=== PATIENT | male | born 1935 | race Caucasian/White ===

== ENCOUNTER → 2018-09-20 | Day surgery (SDC) | payer MEDICARE ==
[~2018-09-20] VITALS: Ht 203.2 cm; Wt 61.2 kg
[~2018-09-20] MED LIST: ALEVE; ARICEPT5 MG PO; ASPIRIN EC81 MG PO; AUGMENTIN 500-1 EACH PO; CEFAZOLIN SOD 1 GM VIAL ONE; CEFUROXIME250 MG PO; CENTRUM SILVER1 EAC3 PO; CIPRO500 MG PO; DONEPEZIL; DOXAZOSIN; FENTANYL CITRATE/PF 100MCG/2 ML INJ ONE; FLOMAX0.4 MG PO; IOPAMIDOL 300MG/ML 100 ML INFUS..BTL IV ONE; LIDOCAINE HCL 2% LOCAL 20 ML VIAL ONE; MIDAZOLAM HCL 2 MG/2 ML VIAL ONE; NAMENDA10 MG PO; PEPCID20 MG PO; SODIUM CHLORIDE 0.9% 1000ML 1,000 ML ONE; SODIUM CHLORIDE 0.9% 1000ML 2,000 ML ONE; VITAMIN C1000 MG PO; [UNRECOGNIZED DRUG - OTHER]
--- OUTSIDE RECORDS SUMMARY | 2018-09-20 12:51 | XMS REPORT ---
[facility] Address Unknown Phone Unavailable Care Team Providers Care Silk Screen Repairer Name Role Phone NATANAEL MORRIS Unavailable Unavailable Alexandria LAGUNA Unavailable Unavailable Payers Payer Name Policy Type Policy Number Effective Date Expiration Date Problems This patient has no known problems. Allergies, Adverse Reactions, Alerts Allergy Name Allergy Type Status Severity Reaction(s) Onset Date Inactive Date Treating Clinician Comments No Known Allergies DA Active U 2016-06-12 00:00:00 Medications This patient has no known medications. Results Test Description Test Time Test Comments Text Results Atomic Results Result Comments CBC W/MANUAL DIFF 2018-07-05 16:53:00 WHITE BLOOD CELL (test code=WBC) 4.1 K/mm3 4.5-12.5 RED BLOOD CELL (test code=RBC) 4.11 mill/mm3 4.0-5.8 HEMOGLOBIN (test code=HGB) 11.5 gram/dL 13.0-17.5 HEMATOCRIT (test code=HCT) 37.4 % 42.0-52.0 MEAN CELL VOLUME (test code=MCV) 91.0 fL 80-98 MEAN CELL HGB (test code=MCH) 28.0 picogram 27.0-33.0 MEAN CELL HGB CONCETRATION (test code=MCHC) 30.7 gram/dL 33.0-36.0 RED CELL DISTRIBUTION WIDTH (test code=RDW) 13.8 % 11.6-16.2 RED CELL DISTRIBUTION WIDTH SD (test code=RDW-SD) 46.5 fL 37.0-51.0 PLATELET COUNT (test code=PLT) 110 K/mm3 150-450 MEAN PLATELET VOLUME (test code=MPV) 9.4 fL 6.7-11.0 IMMATURE GRANULOCYTE % (test code=IG%) 0.7 % 0.0-5.0 NUCLEATED RBC % (test code=NRBC%) 0.0 % 0-0 NEUTROPHIL # (test code=NT#) 2.68 K/mm3 1.8-7.7 IMMATURE GRANULOCYTE # (test code=IG#) 0.03 x10 3/uL 0-0.03 LYMPHOCYTE # (test code=LY#) 1.01 K/mm3 1.0-5.0 MONOCYTE # (test code=MO#) 0.29 K/mm3 0-0.8 EOSINOPHIL # (test code=EO#) 0.04 K/mm3 0.0-0.5 BASOPHIL # (test code=BA#) 0.00 K/mm3 0.0-0.2 NUCLEATED RBC # (test code=NRBC#) 0.00 K/mm3 0.0-0.1 MANUAL DIFF REQUIRED (test code=MDIFF) YES STAIN ACCEPTABILITY (test code=STN ACCEPTABLE) STAIN ACCEPTABLE TOTAL CELLS COUNTED (test code=TCC) 100 #CELLS SEGMENTED NEUTROPHILS (test code=SEG) 68 % 39-69 BAND NEUTROPHIL (test code=BAND) 1 % 0-10 LYMPHOCYTE (test code=LYMPH) 23 % 25-55 MONOCYTE (test code=MON) 8 % 0-10 MORPHOLOGY COMMENT (test code=MOC) NORMAL PLATELET ESTIMATE (test code=PLTEST) DECREASED PLATELET MORPHOLOGY (test code=PLTMORPH) NORMAL BASIC METABOLIC [id number] 13:02:00* Test Item Value Reference Range Comments SODIUM (test code=NA) 140 mmol/L 136-145 POTASSIUM (test code=K) 4.2 mmol/L 3.5-5.1 CHLORIDE (test code=CL) 106.0 mmol/L 98-107 CARBON DIOXIDE (test code=CO2) 32.0 mmol/L 21-32 ANION GAP (test code=GAP) 6.2 10-20 GLUCOSE (test code=GLU) 93 mg/dL 74-106 BLOOD UREA NITROGEN (test code=BUN) 37 mg/dL 7-18 GLOMERULAR FILTRATION RATE (test code=GFR) > 60 mL/min >=60 Estimated GFR by using Modified MDRD formula.Chronic kidney disease is defined as either kidney damageor GFR <60 mL/min/1.73 m2 for >3 months. CREATININE (test code=CREAT) 0.80 mg/dL 0.7-1.3 BUN/CREATININE RATIO (test code=BUN/CREA) 46.3 10-20 CALCIUM (test code=CA) 8.5 mg/dL 8.5-10.1 [id number] 13:02:00* Test Item Value Reference Range Comments MAGNESIUM (test code=MAG) 2.3 mg/dL 1.8-2.4 BASIC METABOLIC [id number] 12:47:00* Test Item Value Reference Range Comments SODIUM (test code=NA) 140 mmol/L 136-145 POTASSIUM (test code=K) 4.2 mmol/L 3.5-5.1 CHLORIDE (test code=CL) 106.0 mmol/L 98-107 CARBON DIOXIDE (test code=CO2) mmol/L 21-32 ANION GAP (test code=GAP) 10-20 GLUCOSE (test code=GLU) mg/dL 74-106 BLOOD UREA NITROGEN (test code=BUN) mg/dL 7-18 GLOMERULAR FILTRATION RATE (test code=GFR) mL/min >=60 CREATININE (test code=CREAT) mg/dL 0.7-1.3 BUN/CREATININE RATIO (test code=BUN/CREA) 10-20 CALCIUM (test code=CA) mg/dL 8.5-10.1 [id number] 12:47:00* Test Item Value Reference Range Comments MAGNESIUM (test code=MAG) mg/dL 1.8-2.4 CBC W/MANUAL [id number] 12:07:00* Test Item Value Reference Range Comments WHITE BLOOD CELL (test code=WBC) 4.1 K/mm3 4.5-12.5 RED BLOOD CELL (test code=RBC) 4.11 mill/mm3 4.0-5.8 HEMOGLOBIN (test code=HGB) 11.5 gram/dL 13.0-17.5 HEMATOCRIT (test code=HCT) 37.4 % 42.0-52.0 MEAN CELL VOLUME (test code=MCV) 91.0 fL 80-98 MEAN CELL HGB (test code=MCH) 28.0 picogram 27.0-33.0 MEAN CELL HGB CONCETRATION (test code=MCHC) 30.7 gram/dL 33.0-36.0 RED CELL DISTRIBUTION WIDTH (test code=RDW) 13.8 % 11.6-16.2 RED CELL DISTRIBUTION WIDTH SD (test code=RDW-SD) 46.5 fL 37.0-51.0 PLATELET COUNT (test code=PLT) 110 K/mm3 150-450 MEAN PLATELET VOLUME (test code=MPV) 9.4 fL 6.7-11.0 IMMATURE GRANULOCYTE % (test code=IG%) 0.7 % 0.0-5.0 NUCLEATED RBC % (test code=NRBC%) 0.0 % 0-0 NEUTROPHIL # (test code=NT#) 2.68 K/mm3 1.8-7.7 IMMATURE GRANULOCYTE # (test code=IG#) 0.03 x10 3/uL 0-0.03 LYMPHOCYTE # (test code=LY#) 1.01 K/mm3 1.0-5.0 MONOCYTE # (test code=MO#) 0.29 K/mm3 0-0.8 EOSINOPHIL # (test code=EO#) 0.04 K/mm3 0.0-0.5 BASOPHIL # (test code=BA#) 0.00 K/mm3 0.0-0.2 NUCLEATED RBC # (test code=NRBC#) 0.00 K/mm3 0.0-0.1 MANUAL DIFF REQUIRED (test code=MDIFF) YES STAIN ACCEPTABILITY (test code=STN ACCEPTABLE) TOTAL CELLS COUNTED (test code=TCC) #CELLS SEGMENTED NEUTROPHILS (test code=SEG) % 39-69 LYMPHOCYTE (test code=LYMPH) % 25-55 MONOCYTE (test code=MON) % 0-10 EOSINOPHIL (test code=EOS) % 0.0-5.0 CABOT RINGS (test code=CAB) MORPHOLOGY COMMENT (test code=MOC) PLATELET ESTIMATE (test code=PLTEST) PLATELET MORPHOLOGY (test code=PLTMORPH) CBC W/MANUAL [id number] 12:07:00* Test Item Value Reference Range Comments WHITE BLOOD CELL (test code=WBC) 4.1 K/mm3 4.5-12.5 RED BLOOD CELL (test code=RBC) 4.11 mill/mm3 4.0-5.8 HEMOGLOBIN (test code=HGB) 11.5 gram/dL 13.0-17.5 HEMATOCRIT (test code=HCT) 37.4 % 42.0-52.0 MEAN CELL VOLUME (test code=MCV) 91.0 fL 80-98 MEAN CELL HGB (test code=MCH) 28.0 picogram 27.0-33.0 MEAN CELL HGB CONCETRATION (test code=MCHC) 30.7 gram/dL 33.0-36.0 RED CELL DISTRIBUTION WIDTH (test code=RDW) 13.8 % 11.6-16.2 RED CELL DISTRIBUTION WIDTH SD (test code=RDW-SD) 46.5 fL 37.0-51.0 PLATELET COUNT (test code=PLT) 110 K/mm3 150-450 MEAN PLATELET VOLUME (test code=MPV) 9.4 fL 6.7-11.0 IMMATURE GRANULOCYTE % (test code=IG%) 0.7 % 0.0-5.0 NUCLEATED RBC % (test code=NRBC%) 0.0 % 0-0 NEUTROPHIL # (test code=NT#) 2.68 K/mm3 1.8-7.7 IMMATURE GRANULOCYTE # (test code=IG#) 0.03 x10 3/uL 0-0.03 LYMPHOCYTE # (test code=LY#) 1.01 K/mm3 1.0-5.0 MONOCYTE # (test code=MO#) 0.29 K/mm3 0-0.8 EOSINOPHIL # (test code=EO#) 0.04 K/mm3 0.0-0.5 BASOPHIL # (test code=BA#) 0.00 K/mm3 0.0-0.2 NUCLEATED RBC # (test code=NRBC#) 0.00 K/mm3 0.0-0.1 MANUAL DIFF REQUIRED (test code=MDIFF) YES STAIN ACCEPTABILITY (test code=STN ACCEPTABLE) TOTAL CELLS COUNTED (test code=TCC) #CELLS SEGMENTED NEUTROPHILS (test code=SEG) % 39-69 LYMPHOCYTE (test code=LYMPH) % 25-55 MONOCYTE (test code=MON) % 0-10 EOSINOPHIL (test code=EOS) % 0.0-5.0 CABOT RINGS (test code=CAB) MORPHOLOGY COMMENT (test code=MOC) PLATELET ESTIMATE (test code=PLTEST) PLATELET MORPHOLOGY (test code=PLTMORPH) CBC W/MANUAL [id number] 12:07:00* Test Item Value Reference Range Comments WHITE BLOOD CELL (test code=WBC) 4.1 K/mm3 4.5-12.5 RED BLOOD CELL (test code=RBC) 4.11 mill/mm3 4.0-5.8 HEMOGLOBIN (test code=HGB) 11.5 gram/dL 13.0-17.5 HEMATOCRIT (test code=HCT) 37.4 % 42.0-52.0 MEAN CELL VOLUME (test code=MCV) 91.0 fL 80-98 MEAN CELL HGB (test code=MCH) 28.0 picogram 27.0-33.0 MEAN CELL HGB CONCETRATION (test code=MCHC) 30.7 gram/dL 33.0-36.0 RED CELL DISTRIBUTION WIDTH (test code=RDW) 13.8 % 11.6-16.2 RED CELL DISTRIBUTION WIDTH SD (test code=RDW-SD) 46.5 fL 37.0-51.0 PLATELET COUNT (test code=PLT) 110 K/mm3 150-450 MEAN PLATELET VOLUME (test code=MPV) 9.4 fL 6.7-11.0 IMMATURE GRANULOCYTE % (test code=IG%) 0.7 % 0.0-5.0 NUCLEATED RBC % (test code=NRBC%) 0.0 % 0-0 NEUTROPHIL # (test code=NT#) 2.68 K/mm3 1.8-7.7 IMMATURE GRANULOCYTE # (test code=IG#) 0.03 x10 3/uL 0-0.03 LYMPHOCYTE # (test code=LY#) 1.01 K/mm3 1.0-5.0 MONOCYTE # (test code=MO#) 0.29 K/mm3 0-0.8 EOSINOPHIL # (test code=EO#) 0.04 K/mm3 0.0-0.5 BASOPHIL # (test code=BA#) 0.00 K/mm3 0.0-0.2 NUCLEATED RBC # (test code=NRBC#) 0.00 K/mm3 0.0-0.1 MANUAL DIFF REQUIRED (test code=MDIFF) YES STAIN ACCEPTABILITY (test code=STN ACCEPTABLE) TOTAL CELLS COUNTED (test code=TCC) #CELLS SEGMENTED NEUTROPHILS (test code=SEG) % 39-69 LYMPHOCYTE (test code=LYMPH) % 25-55 MONOCYTE (test code=MON) % 0-10 EOSINOPHIL (test code=EOS) % 0.0-5.0 MORPHOLOGY COMMENT (test code=MOC) PLATELET ESTIMATE (test code=PLTEST) PLATELET MORPHOLOGY (test code=PLTMORPH) CBC W/MANUAL [id number] 12:07:00* Test Item Value Reference Range Comments WHITE BLOOD CELL (test code=WBC) 4.1 K/mm3 4.5-12.5 RED BLOOD CELL (test code=RBC) 4.11 mill/mm3 4.0-5.8 HEMOGLOBIN (test code=HGB) 11.5 gram/dL 13.0-17.5 HEMATOCRIT (test code=HCT) 37.4 % 42.0-52.0 MEAN CELL VOLUME (test code=MCV) 91.0 fL 80-98 MEAN CELL HGB (test code=MCH) 28.0 picogram 27.0-33.0 MEAN CELL HGB CONCETRATION (test code=MCHC) 30.7 gram/dL 33.0-36.0 RED CELL DISTRIBUTION WIDTH (test code=RDW) 13.8 % 11.6-16.2 RED CELL DISTRIBUTION WIDTH SD (test code=RDW-SD) 46.5 fL 37.0-51.0 PLATELET COUNT (test code=PLT) 110 K/mm3 150-450 MEAN PLATELET VOLUME (test code=MPV) 9.4 fL 6.7-11.0 IMMATURE GRANULOCYTE % (test code=IG%) 0.7 % 0.0-5.0 NUCLEATED RBC % (test code=NRBC%) 0.0 % 0-0 NEUTROPHIL # (test code=NT#) 2.68 K/mm3 1.8-7.7 IMMATURE GRANULOCYTE # (test code=IG#) 0.03 x10 3/uL 0-0.03 LYMPHOCYTE # (test code=LY#) 1.01 K/mm3 1.0-5.0 MONOCYTE # (test code=MO#) 0.29 K/mm3 0-0.8 EOSINOPHIL # (test code=EO#) 0.04 K/mm3 0.0-0.5 BASOPHIL # (test code=BA#) 0.00 K/mm3 0.0-0.2 NUCLEATED RBC # (test code=NRBC#) 0.00 K/mm3 0.0-0.1 MANUAL DIFF REQUIRED (test code=MDIFF) YES STAIN ACCEPTABILITY (test code=STN ACCEPTABLE) TOTAL CELLS COUNTED (test code=TCC) #CELLS SEGMENTED NEUTROPHILS (test code=SEG) % 39-69 LYMPHOCYTE (test code=LYMPH) % 25-55 MONOCYTE (test code=MON) % 0-10 MORPHOLOGY COMMENT (test code=MOC) PLATELET ESTIMATE (test code=PLTEST) PLATELET MORPHOLOGY (test code=PLTMORPH) CBC W/MANUAL [id number] 12:07:00* Test Item Value Reference Range Comments WHITE BLOOD CELL (test code=WBC) 4.1 K/mm3 4.5-12.5 RED BLOOD CELL (test code=RBC) 4.11 mill/mm3 4.0-5.8 HEMOGLOBIN (test code=HGB) 11.5 gram/dL 13.0-17.5 HEMATOCRIT (test code=HCT) 37.4 % 42.0-52.0 MEAN CELL VOLUME (test code=MCV) 91.0 fL 80-98 MEAN CELL HGB (test code=MCH) 28.0 picogram 27.0-33.0 MEAN CELL HGB CONCETRATION (test code=MCHC) 30.7 gram/dL 33.0-36.0 RED CELL DISTRIBUTION WIDTH (test code=RDW) 13.8 % 11.6-16.2 RED CELL DISTRIBUTION WIDTH SD (test code=RDW-SD) 46.5 fL 37.0-51.0 PLATELET COUNT (test code=PLT) 110 K/mm3 150-450 MEAN PLATELET VOLUME (test code=MPV) 9.4 fL 6.7-11.0 IMMATURE GRANULOCYTE % (test code=IG%) 0.7 % 0.0-5.0 NUCLEATED RBC % (test code=NRBC%) 0.0 % 0-0 NEUTROPHIL # (test code=NT#) 2.68 K/mm3 1.8-7.7 IMMATURE GRANULOCYTE # (test code=IG#) 0.03 x10 3/uL 0-0.03 LYMPHOCYTE # (test code=LY#) 1.01 K/mm3 1.0-5.0 MONOCYTE # (test code=MO#) 0.29 K/mm3 0-0.8 EOSINOPHIL # (test code=EO#) 0.04 K/mm3 0.0-0.5 BASOPHIL # (test code=BA#) 0.00 K/mm3 0.0-0.2 NUCLEATED RBC # (test code=NRBC#) 0.00 K/mm3 0.0-0.1 MANUAL DIFF REQUIRED (test code=MDIFF) YES STAIN ACCEPTABILITY (test code=STN ACCEPTABLE) TOTAL CELLS COUNTED (test code=TCC) #CELLS SEGMENTED NEUTROPHILS (test code=SEG) % 39-69 LYMPHOCYTE (test code=LYMPH) % 25-55 MONOCYTE (test code=MON) % 0-10 EOSINOPHIL (test code=EOS) % 0.0-5.0 CABOT RINGS (test code=CAB) MORPHOLOGY COMMENT (test code=MOC) PLATELET ESTIMATE (test code=PLTEST) PLATELET MORPHOLOGY (test code=PLTMORPH) - CT ABD PELVIS W/O [id number] 21:26:00 Name: AGUSTINA MILTON [facility] : 1935 Age/S: 83 / M [address] [facility] [address] #: [id number] Loc: [place] [address] Phys: Natanael Morris MD Acct: [id number] Dis Date: Status: ADM IN PHONE #: [phone] Exam Date: 07/03/20182045 FAX #: [phone] Reason: STONE PROTOCOL. FOLLOW UP STONES. EXAMS: CPT CODE: [id number] CT ABD PELVIS W/O CONT 98281 HISTORY: Follow-up stones. COMPARISON: CT scan from January 24, 2013. CT abdomen and pelvis: Stone protocol. Automated exposure control. CT of abdomen: The lung bases are demonstrating patchy left lower lobe infiltrate. Bibasal subsegmental atelectasis. Trace effusions. Noncontrast hepatic parenchyma measured 16.4 cm in length and is slightly limited by motion especially inferiorly. No discrete mass on this noncontrast study. Gallbladder demonstrating faint gallstone. Marked splenomegaly at 19 cm in length. No large varices are visible. Stomach is collapsed and limited. Thickened distal esophagus. Noncontrast pancreas is very poorly visible on this exam and difficult to assess. Unremarkable adrenals. Kidneys are free from hydroureteronephrosis. 4.8 mm left upper pole calyceal stone and 3.1 mm right lower pole calyceal stone. No hydroureteronephrosis on either side. Small parapelvic cysts bilaterally, greater on the right. No pathologic adenopathy. Atherosclerotic change of the ectatic abdominal aorta. No bowel obstruction or colitis or diverticulitis or enteritis. Constipati on. CT PELVIS: Appendix is not visible but no inflam mation is noted. Pelvic bowel loops are unobstructed. Constipation. Decompressed urinary bladder with thickened wall and small amount of air. Thickening of the wall is greater than normal for underdistention measuring 1.5 cm in the nondependent wall. Correlate for cystitis. Pr ostate is measuring 5.2 cm. Phleboliths. No pelvic pathologic adenopathy . No free fluid or free air. The subcutaneous tissues and the mus culature are normal with pectus excavatum deformity of the lower chest wal l. No lytic or blastic PAGE 1 Signed Report (CONTINUED) Name: AGUSTINA MILTON [facility] : 1935 Age/S: 83 / M [address] [facility] Unit #: [id number] Loc: [place] [address] Phys: Natanael Morris MD Acct: [id number] Dis Date: Status: ADM IN PHONE #: [phone] Exam Date: 07/03/20182045 FAX #: [phone] Reason: STONE PROTOCOL. FOLLOW UP STONES. EXAMS: CPT CODE: [id number] CT ABD PELVIS W/O CONT 27899 < Continued> lesions are noted within the bony skeleton. Bone islands. 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 IMPRESSION: No hydroureteronephrosis with nonobstructing 4.8 mm left upper pole calyceal stone and 3.1 mm right lower pole calyceal stone. Parapelvic cyst. Severe circumferential wall thickening of the urinary bladder which is greater than normal for underdistention measuring up to 1.5 cm in the nondependent wall. Correlate for cystitis. Perez catheter noted. Constipation without bowel obstruction or colitis or diverticulitis or enteritis. Appendix is not visible. No free fluid or free air. Patchy left lower lobe infiltrate. Marked hepatomegaly at 19 cm in length. at 2126 Reported and signed by: Emmanuel Ortez M.D. CC: Natanael Morris MD; Nishant Rocha MD; Agustina Acuna MD Technologist:Krystina Pittman,RT(R),CT CTDI: DLP: Trnscb Date/Time: 07/03/2018 (2125) [email or web address] Orig Print D/T: S: 07/03/2018 (2129) CTDI: DLP: PAGE 2 Signed Report [id number] 16:38:00* Test Item Value Reference Range Comments GLUBED (test code=GLUBED) 113 mg/dL 74-106 Performed by certified meat press operator at [facility] URINALYSIS [id number] 18:34:00* Test Item Value Reference Range Comments UA COLOR (test code=COLU) DARK YELLOW YELLOW UA APPEARANCE (test code=APPU) Cloudy CLEAR UA GLUCOSE DIPSTICK (test code=DGLUU) NEGATIVE mg/dL NEGATIVE UA BILIRUBIN DIPSTICK (test code=BILU) NEGATIVE mg/dL NEGATIVE UA KETONE DIPSTICK (test code=KETU) 20 (Small) mg/dL NEGATIVE UA SPECIFIC GRAVITY (test code=SGU) 1.020 1.001-1.035 UA BLOOD DIPSTICK (test code=JOSÉ) 2+ (Moderate) NEGATIVE UA PH DIPSTICK (test code=LIZETTE) 5.0 5.0-8.0 UA PROTEIN DIPSTICK (test code=PROU) 100 (2+) mg/dL NEGATIVE UA UROBILINIOGEN DIPSTICK (test code=URO) NEGATIVE mg/dL NEGATIVE UA NITRITE DIPSTICK (test code=YESI) NEGATIVE NEGATIVE UA LEUKOCYTE ESTERASE W REFLEX (test code=LEUUR) 2+ NEGATIVE UA WBC (test code=WBCU) >50 #/HPF 0-5 UA RBC (test code=RBCU) >20 #/HPF 0-5 UA WBC CLUMPS (test code=WBCUCL) >10 /HPF NONE UA EPITHELIAL CELLS (test code=EPIU) None seen per HPF FEW UA BACTERIA (test code=BACU) FEW #/HPF NONE UA MUCUS (test code=MUCU) FEW #/LPF FEW Urine Source? Clean CatchURINALYSIS [id number] 18:16:00* Test Item Value Reference Range Comments UA COLOR (test code=COLU) DARK YELLOW YELLOW UA APPEARANCE (test code=APPU) Cloudy CLEAR UA GLUCOSE DIPSTICK (test code=DGLUU) NEGATIVE mg/dL NEGATIVE UA BILIRUBIN DIPSTICK (test code=BILU) NEGATIVE mg/dL NEGATIVE UA KETONE DIPSTICK (test code=KETU) 20 (Small) mg/dL NEGATIVE UA SPECIFIC GRAVITY (test code=SGU) 1.020 1.001-1.035 UA BLOOD DIPSTICK (test code=JOSÉ) 2+ (Moderate) NEGATIVE UA PH DIPSTICK (test code=LIZETTE) 5.0 5.0-8.0 UA PROTEIN DIPSTICK (test code=PROU) 100 (2+) mg/dL NEGATIVE UA UROBILINIOGEN DIPSTICK (test code=URO) NEGATIVE mg/dL NEGATIVE UA NITRITE DIPSTICK (test code=YESI) NEGATIVE NEGATIVE UA LEUKOCYTE ESTERASE W REFLEX (test code=LEUUR) 2+ NEGATIVE UA WBC (test code=WBCU) per HPF 0-5 Urine Source? Clean Catch- CT HEAD/BRAIN W/O [id number] 16:35:00 Name: AGUSTINA MILTON [facility] : 1935 Age/S: 83 / M [address] [facility] Unit #: [id number] Loc: [place] [address] Phys: PADDY KEATING MD Acct: [id number] Di s Date: Status: REG ER PHONE #: Exam Date: 07/02/2018 1555 FAX #: Reason: Altered Mental Status EXAMS: CPT CODE: [id number] CT HEAD/BRAIN W/O CONT 49014 EXAM: CT of the head with out contrast; INFORMATION: Altered mental status, weakness; TECHNIQUE AND FINDINGS: CT dose reduction protocol; 2.5 mm a xial scans. There is no evidence of intra or extra-axial hemorrhage, mass lesions or midline shift. Mild periventricular hypodensities; otherw ise, unremarkable rodriguez/white matter differentiation. Ventricles are symmetric and are moderately dilated. Prominent sulci and basilar cisterns . Punctate calcifications of the basal ganglia. Calcifications of th e internal carotid arteries. The calvarium is intact. Paranasal sinu ses and mastoid air cells are well aerated. IMPRESSION: 1. No evidence of intracranial hemorrhage or acute territorial infarctio n. 2. Mild chronic ischemic white matter changes and mild atrophy. 3. No major change compared with a study from February 05, 2017. at 5935 Reported and signed by: Jose Mejía M.D. CC: Agustina Acuna MD; MARTIN KEATING MD Technologist:RENE ZARAGOZA RT(R); Emily V CTDI: DLP: Trnscb Date/Time: 07/02/2018 (526) [email or web address] Orig Print D/T: S: 07/02/2018 (6729) CTDI: DLP: PAGE 1 Signed Report BASIC METABOLIC [id number] 16:31:00* Test Item Value Reference Range Comments SODIUM (test code=NA) 140 mmol/L 136-145 POTASSIUM (test code=K) 3.9 mmol/L 3.5-5.1 CHLORIDE (test code=CL) 104.0 mmol/L 98-107 CARBON DIOXIDE (test code=CO2) 29.0 mmol/L 21-32 ANION GAP (test code=GAP) 10.9 10-20 GLUCOSE (test code=GLU) 95 mg/dL 74-106 BLOOD UREA NITROGEN (test code=BUN) 27 mg/dL 7-18 GLOMERULAR FILTRATION RATE (test code=GFR) > 60 mL/min >=60 Estimated GFR by using Modified MDRD formula.Chronic kidney disease is defined as either kidney damageor GFR <60 mL/min/1.73 m2 for >3 months. CREATININE (test code=CREAT) 0.90 mg/dL 0.7-1.3 BUN/CREATININE RATIO (test code=BUN/CREA) 30.0 10-20 CALCIUM (test code=CA) 8.3 mg/dL 8.5-10.1 HEPATIC FUNCTION [id number] 16:31:00* Test Item Value Reference Range Comments TOTAL PROTEIN (test code=PROT) 6.3 gram/dL 6.4-8.2 ALBUMIN (test code=ALB) 3.4 g/dL 3.4-5.0 GLOBULIN (test code=GLOB) 2.9 gram/dL 2.7-4.2 ALBUMIN/GLOBULIN RATIO (test code=A/G) 1.2 0.75-1.50 BILIRUBIN TOTAL (test code=BILT) 0.70 mg/dL 0.0-1.0 BILIRUBIN DIRECT (test code=BILD) 0.17 mg/dL 0.0-0.20 SGOT/AST (test code=AST) 20 IUnit/L 15-37 SGPT/ALT (test code=ALT) 16 IUnit/L 12-78 ALKALINE PHOSPHATASE TOTAL (test code=ALKP) 119 IUnit/L 45-117 Note change in reference range due to change in reagent. THYROID STIMULATING [id number] 16:31:00* Test Item Value Reference Range Comments THYROID STIMULATING HORMONE (test code=TSH) 0.263 uIU/mL 0.36-3.74 TSH REFERENCE RANGES: EUTHYROID: 0.35 - 4.3 mIU/mL HYPO : > 5.5 mIU/mL HYPER : < 0.35 mIU/mL [id number] 16:31:00* Test Item Value Reference Range Comments TROPONIN-I (test code=TROPI) <0.015 ng/mL 0-0.045 [id number] 16:31:00* Test Item Value Reference Range Comments ACETAMINOPHEN (test code=ACET) < 10 mcg/mL 10-30 A RANGE OF 10-30 mcg/mL IS A THERAPEUTIC RANGE. TOXIC CONCENTRATIONS: >150 mcg/mL AT 4 HOURS AFTER INGESTION >=50 mcg/mL AT 12 HOURS AFTER INGESTION [id number] 16:31:00* Test Item Value Reference Range Comments SALICYLATE (test code=GILMER) < 1.7 mg/dL 2.8-20.0 - XR CHEST 1 [id number] 16:23:00 FAX: Agustina Stevenson MD [phone] [place]: St: [facility] FAX: MARTIN KEATING MD Name: AGUSTINA MILTON [facility] : 1935 Age/S: 83/M [address] [facility] Unit #: [id number] Loc: [place] [address] Phys: MARTIN KEATING MD Acct: [id number] Dis Date: Status: REG ER PHONE #: [phone] Exam Date: 07/02/2018 1608 FAX #: [phone] Reason: Altered Mental Status EXAMS: CPT CODE: [id number] XR CHEST 1 V 90168 EXAM: Chest x-ray, one view; INFORMATION: Altered mental status, weakness; IMPRESSION: 1. No evidence of infiltrates, edema or other signs of active cardiopulmonary disease. 2. COPD and aortic calcifications. 3. No major change compared with a study from December 18, 2016. at 9527 Reported and signed by: Jose Mejía M.D. CC: Agustina Acuna MD; MARTIN KEATING MD Technologist: RT ARABELLA(Joe) Trnscrd Date/Time/By: 07/02/2018 (3913) : By: JonelGRW Orig Print D/T: S: 07/02/2018 (8960) PAGE 1 Signed Report BASIC METABOLIC [id number] 16:06:00* Test Item Value Reference Range Comments SODIUM (test code=NA) 140 mmol/L 136-145 POTASSIUM (test code=K) 3.9 mmol/L 3.5-5.1 CHLORIDE (test code=CL) 104.0 mmol/L 98-107 CARBON DIOXIDE (test code=CO2) mmol/L 21-32 ANION GAP (test code=GAP) 10-20 GLUCOSE (test code=GLU) mg/dL 74-106 BLOOD UREA NITROGEN (test code=BUN) mg/dL 7-18 GLOMERULAR FILTRATION RATE (test code=GFR) mL/min >=60 CREATININE (test code=CREAT) mg/dL 0.7-1.3 BUN/CREATININE RATIO (test code=BUN/CREA) 10-20 CALCIUM (test code=CA) mg/dL 8.5-10.1 HEPATIC FUNCTION [id number] 16:06:00* Test Item Value Reference Range Comments TOTAL PROTEIN (test code=PROT) gram/dL 6.4-8.2 ALBUMIN (test code=ALB) g/dL 3.4-5.0 GLOBULIN (test code=GLOB) gram/dL 2.7-4.2 ALBUMIN/GLOBULIN RATIO (test code=A/G) 0.75-1.50 BILIRUBIN TOTAL (test code=BILT) mg/dL 0.0-1.0 BILIRUBIN DIRECT (test code=BILD) mg/dL 0.0-0.20 SGOT/AST (test code=AST) IUnit/L 15-37 SGPT/ALT (test code=ALT) IUnit/L 12-78 ALKALINE PHOSPHATASE TOTAL (test code=ALKP) IUnit/L 45-117 THYROID STIMULATING [id number] 16:06:00* Test Item Value Reference Range Comments THYROID STIMULATING HORMONE (test code=TSH) uIU/mL 0.36-3.74 [id number] 16:06:00* Test Item Value Reference Range Comments TROPONIN-I (test code=TROPI) ng/mL 0-0.045 [id number] 16:06:00* Test Item Value Reference Range Comments ACETAMINOPHEN (test code=ACET) mcg/mL 10-30 [id number] 16:06:00* Test Item Value Reference Range Comments SALICYLATE (test code=GILMER) mg/dL 2.8-20.0 CBC W/AUTO [id number] 15:56:00* Test Item Value Reference Range Comments WHITE BLOOD CELL (test code=WBC) 4.3 K/mm3 4.5-12.5 RED BLOOD CELL (test code=RBC) 4.59 mill/mm3 4.0-5.8 HEMOGLOBIN (test code=HGB) 13.1 gram/dL 13.0-17.5 HEMATOCRIT (test code=HCT) 42.1 % 42.0-52.0 MEAN CELL VOLUME (test code=MCV) 91.5 fL 80-98 MEAN CELL HGB (test code=MCH) 28.3 picogram 27.0-33.0 MEAN CELL HGB CONCETRATION (test code=MCHC) 31.0 gram/dL 33.0-36.0 RED CELL DISTRIBUTION WIDTH (test code=RDW) 14.4 % 11.6-16.2 RED CELL DISTRIBUTION WIDTH SD (test code=RDW-SD) 48.1 fL 37.0-51.0 PLATELET COUNT (test code=PLT) 115 K/mm3 150-450 MEAN PLATELET VOLUME (test code=MPV) 8.8 fL 6.7-11.0 NEUTROPHIL % (test code=NT%) 85.4 % 39.0-69.0 IMMATURE GRANULOCYTE % (test code=IG%) 0.5 % 0.0-5.0 LYMPHOCYTE % (test code=LY%) 10.0 % 25.0-55.0 MONOCYTE % (test code=MO%) 3.9 % 0.0-10.0 EOSINOPHIL % (test code=EO%) 0.0 % 0.0-5.0 BASOPHIL % (test code=BA%) 0.2 % 0.0-1.0 NUCLEATED RBC % (test code=NRBC%) 0.0 % 0-0 NEUTROPHIL # (test code=NT#) 3.68 K/mm3 1.8-7.7 IMMATURE GRANULOCYTE # (test code=IG#) 0.02 x10 3/uL 0-0.03 LYMPHOCYTE # (test code=LY#) 0.43 K/mm3 1.0-5.0 MONOCYTE # (test code=MO#) 0.17 K/mm3 0-0.8 EOSINOPHIL # (test code=EO#) 0.00 K/mm3 0.0-0.5 BASOPHIL # (test code=BA#) 0.01 K/mm3 0.0-0.2 NUCLEATED RBC # (test code=NRBC#) 0.00 K/mm3 0.0-0.1 MANUAL DIFF REQUIRED (test code=MDIFF) NO CBC W/AUTO [id number] 15:54:00* Test Item Value Reference Range Comments WHITE BLOOD CELL (test code=WBC) K/mm3 4.5-12.5 RED BLOOD CELL (test code=RBC) mill/mm3 4.0-5.8 HEMOGLOBIN (test code=HGB) 13.1 gram/dL 13.0-17.5 HEMATOCRIT (test code=HCT) 42.1 % 42.0-52.0 MEAN CELL VOLUME (test code=MCV) fL 80-98 MEAN CELL HGB (test code=MCH) picogram 27.0-33.0 MEAN CELL HGB CONCETRATION (test code=MCHC) gram/dL 33.0-36.0 RED CELL DISTRIBUTION WIDTH (test code=RDW) % 11.6-16.2 RED CELL DISTRIBUTION WIDTH SD (test code=RDW-SD) fL 37.0-51.0 PLATELET COUNT (test code=PLT) K/mm3 150-450 MEAN PLATELET VOLUME (test code=MPV) fL 6.7-11.0 NEUTROPHIL % (test code=NT%) % 39.0-69.0 IMMATURE GRANULOCYTE % (test code=IG%) % 0.0-5.0 LYMPHOCYTE % (test code=LY%) % 25.0-55.0 MONOCYTE % (test code=MO%) % 0.0-10.0 EOSINOPHIL % (test code=EO%) % 0.0-5.0 BASOPHIL % (test code=BA%) % 0.0-1.0 NEUTROPHIL # (test code=NT#) K/mm3 1.8-7.7 LYMPHOCYTE # (test code=LY#) K/mm3 1.0-5.0 MONOCYTE # (test code=MO#) K/mm3 0-0.8 EOSINOPHIL # (test code=EO#) K/mm3 0.0-0.5 BASOPHIL # (test code=BA#) K/mm3 0.0-0.2 CT PELVIS W [place] [address] Patient Name: AGUSTINA MILTON MR #: [id number] : 1935 Age/Sex: 81/M Req #: [id number] Adm Physician: Ordered by: NATANAEL MORRIS MD Report #: [id number] Location: CT Room/Bed: Procedure: [id number] CT/CT PELVIS W Exam Date: 7 Exam Time: 1455 REPORT STATUS: Signed PROC EDURE: CT PELVIS WITH CONTRAST COMPARISON: CT pelvis 02/01/2017. INDICATIONS: NUEROMUSCULAR DYSFUNCTION OF BLADDER TECHNIQUE: Multidet harmeet imaging of the abdomen and pelvis was performed from the level of the d iaphragm to below the pubic symphysis after administration of 50 cc of Isovue 370. The contrast was infused in a retrograde fashion into the urinary bladd er via the existing Perez catheter. Images were obtained with the bladder ful l and after voiding. Coronal and sagittal multiplanar reformations were obtai sakshi. FINDINGS: Perez catheter is present within the urinary bladder. Contrast opacification of the urinary bladder is noted. Numerous bladder d iverticula are present throughout the urinary bladder. No extravasation of co ntrast is present. Incidental note is made of left vesicoureteral reflux to t he level of the left renal pelvis. No right vesiculoureteral reflux is visual ized. Large amount of retained feces limit intraluminal evaluation of the colon. No appendix is visualized. The atherosclerotic calcifications. Deg enerative changes of the lumbar spine. The inferior margin of the spleen is v isualized, series 2 image one. CONCLUSION: No evidence of contrast ex travasation. Numerous bladder diverticuli may represent moderate trabeculatio n from chronic neurogenic bladder. Left vesiculoureteral reflux. Visualizati on of the inferior margin of the spleen may represent splenomegaly. Di ctated by: Racheal Giordano M.D. on 03/16/2017 at 16:09 Electronically appro hortensia by: Racheal Giordano M.D. on 03/16/2017 at 16:09 Dictated By : RACHEAL GIORDANO MD 1609 Tra nscribed By: CATINA on 03/16/17 1605 COPY TO: NATANAEL MORRIS MD CT PELVIS [place] [address] Patient Name: AGUSTINA MILTON MR #: [id number] : 1935 Age/Sex: 81/M Req #: [id number] Adm Physician: Ordered by: SUSAN LAGUNA MD Report #: [id number] Location: ER Room/Bed: Procedure: [id number] CT/CT PELVIS WO Exam Date: 01/12 05/30 Exam Time: 1300 REPORT STATUS: Signed E XAM: CT Pelvis WITHOUT contrast INDICATION: Check Perez catheter COMPARISO N: Same day CT of the abdomen and pelvis TECHNIQUE: Pelvis were scanned utiliz ing a multidetector helical scanner from the iliac crest to the pubic symphysi s without administration of IV contrast. Isovue-370/saline was injected into t he Perez catheter. Coronal and sagittal reformations were obtained. CT cystogr am was performed. Iodinated contrasted was instilled via Perez catheter. IV CONTRAST: None. ORAL CONTRAST: None RADI ATION DOSE: Total DLP: 677.32 mGy*cm Estimated effective dose: (D LP x 0.015 x size factor) mSv COMPLICATIONS: None FINDINGS: LINES and TUBES: Perez catheter has its tip in the bladder. GI TRACT: No abnormal distention, wall thickening, or evidence of bowel obstruction. PELVIC ORGANS/BLADDER: Contrast opacifies the urinary bladder. There are trabeculations of the bladder wall. The configuration of the prostate gland related to prior TURP procedure. The Perez catheter balloon appears to be within the bladder. LYMPH NODES: No lymphadenopathy. VESSELS: Unrem arkable. PERITONEUM / RETROPERITONEUM: Small amount of free fluid in the pe ritoneum. On the right side of the bladder. There is apparent extravasation of contrast into the right side of the pelvis. BONES: Unremarkable. SOFT TISSUES: Unremarkable. IMPRESSION: 1. Improved visual ization of the Perez catheter with intravesical contrast. 2. There are adam nges from prior TURP procedure. Perez balloon is situated within the bladder ( rather than within the prostatic urethra). 3. There is extravasation of in travesical contrast into the right perivesical space. Findings are consistent with extraperitoneal bladder rupture. Findings were discussed with Dr. Sonia romero at 2:05 PM on 02/01/2017. Lesly Michael MD Signed by: Dr. Lesly sanabria M.D. on 02/01/2017 2:08 PM Dictated By: LESLY MICHAEL MD El ectronically Signed By: LESLY MICHAEL MD on 02/01/171407 Transcribed By: KATHIE GARCIA on 02/01/171407 COPY TO: SUSAN LAGUNA MD CT BRAIN WO [place] [address] Patient Name: AGUSTINA MILTON MR #: [id number] : 1 Age/Sex: 81/M Req #: [id number] Adm Physician: Ordered by: SUSAN LAGUNA MD Report #: [id number] Location: ER Room/Bed: Procedure: [id number] CT/CT BRAIN WO Exam Date: 02/01 Exam Time: 0940 REPORT STATUS: Signed Ex am: Head CT without contrast History: Trauma, fall Comparison studies: Non e Technique: Axial images were obtained from the skull base to the vertex . Coronal and sagittal images reconstructed from the axial data. Intravenous contrast: None Findings: Scalp: No abnormalities. Bones: No fractur es, blastic or lytic lesions. Brain sulci: Prominent Ventricles: Moderate compensatory dilatation. No hydrocephalus. Extra-axial spaces: No masses, no fluid collection. Parenchyma: No mass, acute hemorrhage or acute cortic al vascular insults. A few subtle hypodensities in the supratentorial white ma tter are nonspecific but most compatible with chronic small vessel ischemic ch anges. Sellar/suprasellar region: No abnormalities. Craniocervical juncti on: Patent foramen magnum. No Chiari one malformation. Incidental findings: Atherosclerotic calcifications in the carotid siphons.. IMPRESSION: No acute abnormalities. Chronic findings: 1. Moderate generalized vol ume loss. 2. Mild supratentorial microvascular ischemic changes. Signed by: Dr. Agustina June M.D. on 02/01/2017 10:25 AM Dictated By: AGUSTINA VALENZUELA MD 1025 Transc ribed By: MILKA on 02/01/17 1025 COPY TO: SUSAN LAGUNA MD CT ABDOMEN/PELVIS WO [place] [address] Patient Name: AGUSTINA MILTON MR #: [id number] : 1935 Age/Sex: 81/M Req #: [id number] Adm Physician: Ordered by: SUSAN LAGUNA MD Report #: [id number] Location: ER Room/Bed: Procedure: [id number] CT/CT ABDOMEN/PELVIS WO Exam Da te: 02/01/17 Exam Time: 0948 REPORT STATUS: Sig sakshi EXAM: CT Abdomen and Pelvis WITHOUT contrast INDICATION: Abdominal di stention. Possible ascites. Fever. COMPARISON: CT of the abdomen and pelvis fr 01/27/2017 TECHNIQUE: Abdomen and pelvis were scanned utilizing a multidete ctor helical scanner from the lung base to the ischial tuberosities without IV contrast. Coronal and sagittal reformations were obtained. Routine protocol w as performed. Scan was performed when during portal venous phase. IV CONTRAST: None ORAL CONTRAST: Water RADIATION D OSE: Total DLP: 319.32 mGy*cm Estimated effective dose: DLP x 0.015 mSv COMPLICATIONS: None FINDINGS: LINES and TUBES: There is a Perez catheter in the bladder. The balloon appears to be in flated within the prostatic urethra. LOWER THORAX: Bibasilar atelectasis, left greater than right. Airspace opacity in the left lung base is worse than before. There is volume loss in the left hemithorax with elevation of the l eft hemidiaphragm. HEPATOBILIARY: No focal hepatic lesions. No bilia ry ductal dilation. GALLBLADDER: No radio-opaque stones or sludge. No wal l thickening. SPLEEN: The spleen is enlarged, measuring 17.5 cm in cranioca udal dimension. PANCREAS: No focal masses or ductal dilatation. ADR ENALS: No adrenal nodules KIDNEYS/URETERS: No hydronephrosis. No c ystic or solid mass lesions. There are bilateral nonobstructing renal sto kendal including a 4 mm stone in the left upper pole and a 3 mm stone in the righ t lower pole. No ureteral stones. GI TRACT: No abnormal distention, wall th ickening, or evidence of bowel obstruction. There is a large amount of stool throughout the colon. PELVIC ORGANS/BLADDER: Perez catheter balloon ap pears to be inflated in the prostatic urethra. LYMPH NODES: No lymphadeno anna. VESSELS: There is moderate atherosclerotic disease in the aorta and major arterial branches. PERITONEUM / RETROPERITONEUM: There is a small a mount of ascites, significantly decreased since the prior examination. No free intraperitoneal air. BONES: Dextroscoliosis of the thoracolumbar spine, un changed. Multilevel degenerative changes of the thoracic and lumbar spine. SOFT TISSUES: Unremarkable. IMPRESSION: 1. Small amount of ascites, significantly decreased from the prior examination on 01/27/2017. 2. Perez catheter balloon appears to be inflated within the prostatic ureth ra. Recommend repositioning. 3. Subsegmental atelectasis in both lung bas es. The degree of airspace opacity in the left lung base has increased since t he prior examination. Superimposed infection is possible. Lesly Michael MD Signed by: Dr. Lesly Michael M.D. on 02/01/2017 10:34 AM Dict ated By: LESLY MICHAEL MD 1034 COPY TO: Courtney LAGUNA MD CHEST SINGLE (PORTABLE) [place] [address] Patient Name: AGUSTINA MILTON MR #: [id number] : 1935 Age/Sex: 81/M Req #: [id number] Adm Physician: Ordered by: SUSAN LAGUNA MD Report #: [id number] Location: ER Room/Bed: Procedure: [id number] DX/CHEST SINGLE (PORTABLE) Exam Date: 02/01/17 Exam Time: 919 REPORT STATUS: Signed EXAMINATION: CHEST SINGLE (PORTABLE) 02/01/2017 9:05 AM SABRINA RISON: None INDICATION: Fever, surgery or Thursday DISCUSSION: LINES: None. LUNGS: Volume loss in the left hemithorax. Left basilar airs pace opacity. Right basilar atelectasis PLEURA: No pleural effusion or p neumothorax. HEART AND MEDIASTINUM: The cardiomediastinal silhouette is un remarkable. BONES AND SOFT TISSUES: No acute osseous lesion. The soft tiss ues are normal. IMPRESSION: Left basilar airspace opacity represents atelectasis and/or infection. Lesly Michael MD Signed by: Dr. Lesly Michael M.D. on 02/01/2017 10:36 AM Dictated By: LESLY MICHAEL MD 1036 Transcribed By: MILKA on 02/01/17 1036 COPY TO: SUSAN LAGUNA MD CT ABDOMEN/PELVIS WO [place] [address] Patient Name: AGUSTINA MILTON MR #: [id number] : 1935 Age/Sex: 81/M Req #: [id number] [facility] Physician: Ordered by: NATANAEL MORRIS MD Report #: [id number] Location: OR Room/Bed: Procedure: [id number] CT/CT ABDOMEN/PELVIS WO Exam Date : 01/27/17 Exam Time: 1142 REPORT STATUS: Briseyda d PROCEDURE: CT ABDOMEN AND PELVIS WITHOUT CONTRAST TECHNIQUE: The a bdomen and pelvis were scanned utilizing a multidetector helical scanner from the diaphragm to the lesser trochanter without contrast. Coronal and sagittal multiplanar reformations were obtained. Total DLP: 404.7 mGy-cm CO MPARISON: None. INDICATIONS: ABDOMINAL DISTENTION, POST TURP FIN DINGS: ABSENCE OF INTRAVENOUS CONTRAST DECREASES SENSITIVITY FOR DETECTION OF FOCAL LESIONS AND VASCULAR PATHOLOGY. LOWER THORAX: Bilateral lower lobe atelectasis especially the left lower lobe. There are several hyperdens ities in the left lower lobe, likely representing aspiration. HEPATOBIL IARY: No focal hepatic lesions. No biliary ductal dilatation. Questionable g allbladder sludge. SPLEEN: Moderate splenomegaly measures 16.6 cm in AP di mension. PANCREAS: No focal masses or ductal dilatation. ADRENALS: No ad renal nodules. KIDNEYS/URETERS: No hydronephrosis or solid mass lesions. Right kidney is mildly atrophic. 0.3 cm stone in lower pole of the right kidney. 0 .5 cm stone in the upper pole of left kidney. Left renal pelviectasis/extr arenal pelvis. PELVIC ORGANS/BLADDER: Prostate measures 5.5 cm in transver se dimension with a Perez catheter in place. 4 radiopaque objects in 4 quadra nts of the prostate. Air within the bladder related to Perez catheter plac ement. PERITONEUM / RETROPERITONEUM: Large amount of simple appearing asci jim. LYMPH NODES: No lymphadenopathy. VESSELS: Moderate atherosclerotic calc ifications in the aorta. GI TRACT: No distention or wall thickening. BONES AND SOFT TISSUES: Severe degenerative changes in the lumbar spine with scoliotic changes and multilevel disc space narrowing. IMPRESSION: 1. Bilateral lower lobe atelectasis, left greater than right. There is likely a component of aspiration especially left lower lobe. 2. Moderate splenomegal y. 3. Significant ascites. 4. Gallbladder sludge. 5. Bilateral nonobstruct ing renal stones. 6. Perez catheter placement in the bladder. Dictat ed by: Sg Connelly M.D. on 01/27/2017 at 12:49 Electronically approved by: Sg Connelly M.D. on 01/27/2017 at 12:49 Dictated By: SG CONNELLY MD El ectronically Signed By: SG CONNELLY MD on 01/27/171248 Transcribed By: CATINA on 124 COPY TO: NATANAEL MORRIS MD RETROGRADE PYELOGRAM [place] [address] Patient Name: AGUSTINA MILTON MR #: [id number] : 1 Age/Sex: 81/M Req #: [id number] Adm Physician: Ordered by: NATANAEL MORRIS MD Report #: [id number] Location: OR Room/Bed: Procedure: [id number] DX/RETROGRADE PYELOGRAM Exam Date : 01/27/17 Exam Time: 720 REPORT STATUS: Briseyda d PROCEDURE: X-RAY RETROGRADE PYELOGRAM COMPARISON: CT abdomen and pelv is 01/27/17. INDICATIONS: Not provided. FINDINGS: Multiple intraoper ative spot images of the abdomen and pelvis were obtained. There is retrograd e cannulization of both ureters with contrast injection. Normal right renal c alyxes and ureter. Left renal calyces are blunted with mild hydronephrosis wi th dilated renal pelvis. No definite obstruction identified. Cumulative fluoro time: 23 sec Cumulative area dose product: 172.63 cGycm2 Cumulative air kerma: 14.73 mGy CONCLUSION: Retrograde pyelogram as described above. Dictated by: Sg Connelly M.D. on 01/27/2017 at 16:45 Electronic ally approved by: Sg Connelly M.D. on 01/27/2017 at 16:45 Dictated By: SG CONNELLY MD 44 Transcrib ed By: CATINA on 01/27/171644 COPY TO: NATANAEL MORRIS MD CHEST 2 VIEWS [place] [address] Patient Name: AGUSTINA MILTON MR #: [id number] : 1935 Age/Sex: 81/M Req #: [id number] Adm Physician: Ordered by: NATANAEL MORRIS MD Report #: [id number] Location: OR Room/Bed: Procedure: [id number] DX/CHEST 2 VIEWS Exam Date: 01/23 Exam Time: 1035 REPORT STATUS: Signed MI OCEDURE: X-RAY CHEST, TWO VIEWS COMPARISON: None. INDICATIONS: PROSTATE SURG PRICE FINDINGS: LUNGS: No consolidations or edema. The lungs are hyp erexpanded. PLEURA: No effusions or pneumothorax. HEART T ME DIASTINUM: The heart is within normal size-limits. Tortuous thoracic aorta. BONES T SOFT TISSUES: No acute findings. CONCLUSION: No acute thoracic abnormality. Samuel Lan D.O. Dictated by: Samuel Lan D.O. on 01/23/2017 at 11:30 Electronically approved by: Samuel Lan D.O. on 01/23/2017 at 11:30 Dictated By: SAMUEL LAN DO 1130 Transc ribed By: CATINA on 01/23/17 1130 COPY TO: NATANAEL MORRIS MD
[2018-09-20 16:39] LABS: BASOPHILS % 0.3 % (0.0-1.0); EOSINOPHILS # (AUTO) 0.1 (0.0-0.4); EOSINOPHILS % 2.1 % (0.0-6.0); HEMATOCRIT 38.3 % (38.2-49.6); HEMOGLOBIN 12.1 g/dL (14.0-18.0); LYMPHOCYTES # (AUTO) 1.7 (1.0-3.2); LYMPHOCYTES % 29.6 % (18.0-39.1); MEAN CORPUSCULAR HEMOGLOBIN 28.8 pg (28-32); MEAN CORPUSCULAR HGB CONC 31.6 g/dL (31-35); MEAN CORPUSCULAR VOLUME 91.2 fL (81-99); MONOCYTES # (AUTO) 0.5 (0.2-0.8); MONOCYTES % 8.5 % (4.4-11.3); NEUTROPHILS # (AUTO) 3.4 (2.1-6.9); NEUTROPHILS % 59.2 % (38.7-80.0); PLATELET COUNT 146 x10e3/uL (140-360); RED CELL DISTRIBUTION WIDTH 14.6 % (11.7-14.4)
[2018-09-20 16:52] LABS: INR 0.92; PROTHROMBIN TIME 12.9 seconds (11.9-14.5)
--- NOTE | 2018-09-20 19:00 | NUR ---
Pt meets DC criteria. lower abdomen assessed for s/s of complication and presence of hematoma or swelling. IV removed from left hand. Distal tip appears intact. VS WNL. Pt denies pain, sob, or need at this time. Family at bedside. Review of discharge paperwork and follow up instructions. verbalized understanding. Pt to wheelchair and transported to front of hospital by CPT. Transferred to CPT vehicle under own strength w/o incident with DC paperwork in hand. - cgf
--- NOTE | 2018-09-21 07:51 | Diagnostic Imaging Report ---
Procedure: Ultrasound and fluoroscopic-guided primary suprapubic catheter placement spinner operator: Leigh Ann Waldrop MD Pre-operative diagnosis: Neurogenic bladder, BPH Post-operative diagnosis: Neurogenic bladder, BPH Conscious sedation was administered. The patient's heart rate and pulse oximetry were continuously monitored by the IR nurse. Medications: Lidocaine 1% for local anesthesia, 50 mcg of IV Fentanyl, 1 mg of IV Versed Complications: No immediate complications Specimens: Perez catheter from urethra removed. Implants: 16 Fr Perez Suprapubic catheter. Radiation Dose: Fluoroscopy time: 0.6 minutes Dose area product: 48.5 cGycm2 TECHNIQUE/FINDINGS: Informed written consent was obtained from the patient/healthcare proxy and documented in the medical record. The patient was placed in the supine position. Initial ultrasound demonstrated decompression of the bladder. A total of 500 cc of saline was administered via the existing urethral Perez catheter into the bladder with repeat ultrasound demonstrating satisfactory bladder distension. The midline lower abdomen/pelvis was prepped in the standard sterile fashion. 1% lidocaine was infiltrated into the skin and subcutaneous tissues for local anesthesia. User[employer] suprapubic introducer set was obtained. Then under continuous sonographic guidance with a midline approach, a 19 gauge needle was advanced into the bladder. An Ampatz wire was used to secure access with fluoroscopic guidance. Sequential dilation was performed with 8 and 10 Fr dilators. Subsequently, a 20 Fr peel away sheath was advanced with fluoroscopic guidance The inner dilator was removed. After creating an end hole in a 16 Fr Perez catheter, the catheter was advanced into the peel away sheath into the bladder and the peel away sheath was removed. Fluoroscopic contrast injection confirmed satisfactory positioning. The balloon was distended with 10 cc of normal saline. Sterile bandage was placed. Subsequently, the existing urethral Perez catheter was removed. The patient tolerated the procedure well without immediate complication. IMPRESSION: Ultrasound and fluoroscopic guided primary suprapubic catheter placement (16 Fr Perez). PLAN: Future SPT exchange may be performed by the referring team once the tract is mature. Signed by: Dr. Leigh Ann Waldrop MD on 09/21/2018 7:48 AM
--- NOTE | 2018-10-13 16:19 | Diagnostic Imaging Report ---
Procedure: Ultrasound and fluoroscopic-guided primary suprapubic catheter placement shear grinder operator helper: Leigh Ann Waldrop MD Pre-operative diagnosis: Neurogenic bladder, BPH Post-operative diagnosis: Neurogenic bladder, BPH Conscious sedation was administered. The patient's heart rate and pulse oximetry were continuously monitored by the IR nurse. Medications: Lidocaine 1% for local anesthesia, 50 mcg of IV Fentanyl, 1 mg of IV Versed Complications: No immediate complications Specimens: Perez catheter from urethra removed. Implants: 16 Fr Perez Suprapubic catheter. Radiation Dose: Fluoroscopy time: 0.6 minutes Dose area product: 48.5 cGycm2 TECHNIQUE/FINDINGS: Informed written consent was obtained from the patient/healthcare proxy and documented in the medical record. The patient was placed in the supine position. Initial ultrasound demonstrated decompression of the bladder. A total of 500 cc of saline was administered via the existing urethral Perez catheter into the bladder with repeat ultrasound demonstrating satisfactory bladder distension. The midline lower abdomen/pelvis was prepped in the standard sterile fashion. 1% lidocaine was infiltrated into the skin and subcutaneous tissues for local anesthesia. Fuzmo suprapubic introducer set was obtained. Then under continuous sonographic guidance with a midline approach, a 19 gauge needle was advanced into the bladder. An Ampatz wire was used to secure access with fluoroscopic guidance. Sequential dilation was performed with 8 and 10 Fr dilators. Subsequently, a 20 Fr peel away sheath was advanced with fluoroscopic guidance The inner dilator was removed. After creating an end hole in a 16 Fr Perez catheter, the catheter was advanced into the peel away sheath into the bladder and the peel away sheath was removed. Fluoroscopic contrast injection confirmed satisfactory positioning. The balloon was distended with 10 cc of normal saline. Sterile bandage was placed. Subsequently, the existing urethral Perez catheter was removed. The patient tolerated the procedure well without immediate complication. IMPRESSION: Ultrasound and fluoroscopic guided primary suprapubic catheter placement (16 Fr Perez). PLAN: Future SPT exchange may be performed by the referring team once the tract is mature. Signed by: Dr. Leigh Ann Waldrop MD on 09/21/2018 7:48 AM
== END | disposition home or self-care (01) ==
LOC: CATH LAB 12:49 → EDSTATUS 09-23 08:00
PROVIDERS: ATTEND Urology
DX: R33.9 Retention of urine, unspecified (principal); N31.9 Neuromuscular dysfunction of bladder, unspecified; N40.0 Benign prostatic hyperplasia without lower urinary tract symptoms; G30.9 Alzheimer's disease, unspecified; F02.80 Dementia in other diseases classified elsewhere, unspecified severity, without behavioral disturbance, psychotic disturbance, mood disturbance, and anxiety; F05 Delirium due to known physiological condition
CPT/HCPCS: 36415; 51102; 76942; 77002; 85025; 85610; J0690; J2001; J2250; J3010; J7030; Q9967

== ENCOUNTER 2018-09-21 15:32 | Inpatient (IN) | payer MEDICARE ==
[~2018-09-21] VITALS: Ht 203.2 cm; Wt 64.9 kg
[~2018-09-21 15:32] MED LIST changes: -AUGMENTIN 500-1 EACH PO; -CEFAZOLIN SOD 1 GM VIAL ONE; -FENTANYL CITRATE/PF 100MCG/2 ML INJ ONE; -IOPAMIDOL 300MG/ML 100 ML INFUS..BTL IV ONE; -LIDOCAINE HCL 2% LOCAL 20 ML VIAL ONE; -MIDAZOLAM HCL 2 MG/2 ML VIAL ONE; -SODIUM CHLORIDE 0.9% 1000ML 1,000 ML ONE; -SODIUM CHLORIDE 0.9% 1000ML 2,000 ML ONE
--- NOTE | 2018-09-21 16:29 | NUR ---
ATTEMPTED TO IRRIGATE SUPRAPUBIC CATHETER WITH 200ML STERILE WATER. LIGHT PINK/BLOOD RETURN NOT EQUAL TO PUSH RETURNED. ER MADE AWARE.
[2018-09-21 17:31] LABS: BASOPHILS % 0.1 % (0.0-1.0); EOSINOPHILS # (AUTO) 0.2 (0.0-0.4); EOSINOPHILS % 1.7 % (0.0-6.0); HEMATOCRIT 39.1 % (38.2-49.6); HEMOGLOBIN 12.7 g/dL (14.0-18.0); LYMPHOCYTES # (AUTO) 0.8 (1.0-3.2); LYMPHOCYTES % 7.4 % (18.0-39.1); MEAN CORPUSCULAR HEMOGLOBIN 28.8 pg (28-32); MEAN CORPUSCULAR HGB CONC 32.5 g/dL (31-35); MEAN CORPUSCULAR VOLUME 88.7 fL (81-99); MONOCYTES # (AUTO) 0.6 (0.2-0.8); MONOCYTES % 5.7 % (4.4-11.3); NEUTROPHILS # (AUTO) 9.1 (2.1-6.9); NEUTROPHILS % 84.7 % (38.7-80.0); PLATELET COUNT 146 x10e3/uL (140-360); RED BLOOD COUNT 4.41 x10e6/uL (4.3-5.7); RED CELL DISTRIBUTION WIDTH 14.4 % (11.7-14.4)
--- NOTE | 2018-09-21 17:39 | Diagnostic Imaging Report ---
A single frontal view of the chest. HISTORY: COUGH POSSIBLE ASPIRATION COMPARISON: Chest radiograph February 01, 2017. DISCUSSION: Portable technique, limits sensitivity of the exam. Right anterior oblique rotation. Tubes/Lines: None Lungs and pleura: Left basilar volume loss with persistent elevation versus eventration of the left hemidiaphragm. Increased peribronchial interstitial markings. Improved aeration of the left lung base, but persistent versus recurrent left basilar patchy interstitial and airspace opacities. No definite pleural effusion or pneumothorax is identified. Heart and mediastinum: The cardiomediastinal silhouette appears unremarkable. Bones and soft tissues: Appear unremarkable, given this limited exam. IMPRESSION: 1. Left basilar atelectasis with elevation versus eventration of the left hemidiaphragm. 2. Superimposed left infrahilar aspiration is a consideration given the provided history. Recommend short term follow up routine PA and lateral chest radiograph, in 6-8 weeks, to evaluate for resolution. Signed by: Dr. Daquan Mckeon D.O., M.M.M. on 09/21/2018 5:35 PM
[2018-09-21 17:45] LABS: PROTHROMBIN TIME 13.7 seconds (11.9-14.5)
[2018-09-21 17:46] LABS: PARTIAL THROMBOPLASTIN TIME 25.3 seconds (23.8-35.5)
[2018-09-21 17:52] LABS: ANION GAP 12.1 mmol/L (8-16); BLOOD UREA NITROGEN 28 mg/dL (7-26); BUN/CREATININE RATIO 37 (6-25); CARBON DIOXIDE 25 mmol/L (22-29); CHLORIDE 103 mmol/L (98-107); CREATININE, SERUM 0.76 mg/dL (0.72-1.25); EST GLOMERULAR FILTRATION RATE > 60 ML/MIN (60-); GLUCOSE 91 mg/dL (74-118); POTASSIUM 4.1 mmol/L (3.5-5.1); SODIUM 136 mmol/L (136-145)
--- NOTE | 2018-09-21 17:53 | NUR ---
Assumed care of pt
[2018-09-21 18:03] LABS: BILIRUBIN,URINE NEGATIVE (NEGATIVE); CLARITY,URINE SL CLOUDY (CLEAR); COLOR,URINE YELLOW (YELLOW); KETONES,URINE NEGATIVE (NEGATIVE); LEUKOCYTE ESTERASE ,URINE LARGE (NEGATIVE); NITRITE,URINE NEGATIVE (NEGATIVE); PROTEIN,URINE DIPSTICK 2+ (NEGATIVE); URINE UROBILINOGEN 0.2 mg/dL (0.2 - 1)
[2018-09-21 18:07] LABS: BACTERIA,URINE MANY /HPF; EPITHELIAL CELLS,URINE MODERATE /LPF; RBC,URINE >50 /HPF (0-5); WBC,URINE (MAN) >50 /HPF (0-5)
[2018-09-21 18:37] LABS: BAND NEUTROPHILS % (MANUAL) 1 %; LYMPHOCYTES % (MANUAL) 6 % (19-48); MONOCYTES % (MANUAL) 4 % (3.4-9.0); NEUTROPHILS % (MANUAL) 89 % (40-74)
[2018-09-21 18:38] LABS: PLATELET ESTIMATE ADEQUATE; PLATELET MORPHOLOGY COMMENT NORMAL; RBC MORPHOLOGY COMMENT NORMAL
--- NOTE | 2018-09-21 18:42 | Diagnostic Imaging Report ---
EXAM: CT of the abdomen WITHOUT contrast HISTORY: VERIFY PLACEMENT OF SUPRAPUBIC CATHETER, issues with suprapubic catheter, no urine output in 24 hours, history of TURP COMPARISON: None available. TECHNIQUE: The abdomen and pelvis were scanned utilizing a multidetector helical scanner. Coronal and sagittal reformats are available. PROTOCOL: Routine IV CONTRAST: None, which limits sensitivity and specificity of evaluation of the soft tissues and vascular structures. ORAL CONTRAST: None, which limits sensitivity and specificity of evaluation of the bowel. RADIATION DOSE: Total DLP: 143.89 mGy*cm Estimated effective dose: (DLP x 0.015 x size factor) Dose modulation, iterative reconstruction, and/or weight based adjustment of the mA/kV was utilized to reduce the radiation dose to as low as reasonably achievable. COMPLICATIONS: None FINDINGS: LOWER THORAX: Lower lobe peribronchial increased interstitial markings with more peripheral confluent opacities. Minimal right lower lobe atelectasis. HEPATOBILIARY: No definite focal hepatic lesions. No biliary ductal dilatation. The gallbladder is unremarkable. SPLEEN: The spleen is markedly enlarged, 16 cm. PANCREAS: No focal masses or ductal dilatation. ADRENALS: No adrenal nodule. KIDNEYS/URETERS: A 4 mm nonobstructing right renal stone. A 6 mm nonobstructing left renal stone. PERITONEUM / RETROPERITONEUM: No free air or fluid. GI TRACT: On limited evaluation of the gastrointestinal tract, no dilation or wall thickening identified. The stomach is decompressed, limiting evaluation. LYMPH NODES: No pathologically enlarged lymph nodes. VESSELS: Diffuse scattered atherosclerotic vascular calcifications. BONES: Diffusely decreased mineralization of the osseous structures limits bone detail. Marked left convex curvature of the visualized thoracal lumbar spine with multilevel moderate to severe degenerative disc changes.. SOFT TISSUES: Diffuse muscle atrophy. IMPRESSION: 1. Bilateral nonobstructing subcentimeter renal stones. 2. Left lower lobe interstitial and airspace opacities in predominantly a peribronchial distribution, consider aspiration or an atypical pneumonia in the appropriate setting. 3. Diffuse demineralization. 4. Splenomegaly. 5. If evaluation of a suprapubic catheter was desired, consider a fluoroscopic contrast examination for best evaluation of the catheter and to evaluate for any extravasation. Signed by: Dr. Daquan Mckeon D.O., M.M.M. on 09/21/2018 6:39 PM
[2018-09-21] MEDS: CEFTRIAXONE SOD 1 GM/NS 50 ML 50 ML IV SCH (18:46)
--- NOTE | 2018-09-21 18:50 | NUR ---
is feeding at bedside, Per Dr. Pringle pt can eat before midnight.
--- NOTE | 2018-09-21 19:00 | NUR ---
Report to FIDELINA Melvin
[2018-09-21] MEDS ORDERED: ONDANSETRON HCL INJ 2MG/ML 2ML 2 MG/ML VIAL IV PRN (19:45)
[2018-09-21] MEDS ORDERED: MORPHINE SULFATE INJ 4 MG/ML INJ 1ML IV PRN (20:00)
[2018-09-21] MEDS ORDERED: ACETAMINOPHEN 1000 MG/100 ML IV PRN (20:00)
[2018-09-21] MEDS: SODIUM CHLORIDE 0.9% 1000ML 1,000 ML IV SCH (20:36)
--- NOTE | 2018-09-21 20:38 | Diagnostic Imaging Report ---
CT of the pelvis was obtained WITHOUT contrast. TECHNIQUE: Standard departmental protocols were used. Sagittal and coronal reformations were obtained. Dose modulation, iterative reconstruction, and/or weight based adjustment of the mA/kV was utilized to reduce the radiation dose to as low as reasonably achievable. DLP = 252.43 mGy-cm HISTORY: Check suprapubic catheter, issues with suprapubic catheter, no urine output in 24 hours, history of TURP COMPARISON: None. FINDINGS: Lines and tubes: The urinary bladder is decompressed via a Perez catheter. The external portion of the suprapubic catheter is faintly visible, a round fluid density within the ventral pelvic soft tissues appears external to the bladder with numerous regional air foci (axial image 32 and sagittal image 63). Bones: Diffusely decreased mineralization of the osseous structures limits bone detail. Joints: Scattered degenerative changes, most notably moderate of the right hip and severe of the visualized lumbosacral facets. Soft tissues: No acute displaced fracture. Large amount of fecal material within the rectum. Diffuse muscle atrophy. Small bilateral fat-containing inguinal hernias. Diffuse scattered atherosclerotic vascular calcifications. IMPRESSION: 1. The suprapubic catheter is external to the urinary bladder within the ventral pelvic wall soft tissues. 2. Large amount of rectal fecal material, correlate for impaction. 3. Diffuse osseous demineralization. Signed by: Dr. Daquan Mckeon D.O., M.M.M. on 09/21/2018 8:35 PM
[2018-09-21 22:15] VITALS: BP 102/53
--- NOTE | 2018-09-21 22:28 | NUR ---
PATIENT RECEIVED FROM THE EMERGENCY DEPARTMENT PER STRETCHER AT 2134; HE'S ALERT AND ORIENTED TO SELF AND HIS , HE KNOWS WHO THE PRESIDENT IS. HE'S INCONTINENT OF STOOL, TOTAL CARE PROVIDED. REDNESS OBSERVED TO THE LOWER ABDOMEN AND THE BACK, GENERALIZED RASHES TO THE BUTTOCK WITH EXCORIATION TO THE SACRUM. ALLEVYN DRESSING APPLIED TO THE SACRUM, BRUISES TO THE ARMS, SMALL ABRASION TO THE RIGHT KNEE. LUNGS SOUND DIMINISHED, NON PRODUCTIVE COUGH NOTED, PATIENT DENIES SHORTNESS OF BREATH OR PAIN. HEAD OF BED ELEVATED, REPOSITION IN BED FOR COMFORT. CALL LIGHT WITHIN EASY REACH, BED ALARM ON AND HIS AT THE BEDSIDE.
[2018-09-22] MEDS: PIPER-TAZ 3.375 GM 50 ML IV SCH ×3 (00:30→14:33)
--- NOTE | 2018-09-22 00:57 | NUR ---
PATIENT KEPT CLEAN AND DRY OF STOOL, REPOSITION IN BED FOR COMFORT. BED ALARM ON, CALL LIGHT WITHIN EASY REACH.
[2018-09-22 04:00] VITALS: BP 131/60
--- NOTE | 2018-09-22 04:05 | NUR ---
PATIENT IS SOUNDLY ASLEEP, HE'S EASY TO AROUSE. NO RESPIRATORY DISTRESS OBSERVED, HE DENIES PAIN. BED ALARM ON, CALL LIGHT WITHIN EASY REACH.
[2018-09-22 05:05] LABS: BASOPHILS % 0.1 % (0.0-1.0); EOSINOPHILS % 0.1 % (0.0-6.0); HEMATOCRIT 38.8 % (38.2-49.6); HEMOGLOBIN 12.3 g/dL (14.0-18.0); LYMPHOCYTES # (AUTO) 1.2 (1.0-3.2); LYMPHOCYTES % 14.2 % (18.0-39.1); MEAN CORPUSCULAR HEMOGLOBIN 28.6 pg (28-32); MEAN CORPUSCULAR HGB CONC 31.7 g/dL (31-35); MEAN CORPUSCULAR VOLUME 90.2 fL (81-99); MONOCYTES # (AUTO) 0.6 (0.2-0.8); MONOCYTES % 6.9 % (4.4-11.3); NEUTROPHILS # (AUTO) 6.5 (2.1-6.9); NEUTROPHILS % 78.1 % (38.7-80.0); PLATELET COUNT 134 x10e3/uL (140-360); RED CELL DISTRIBUTION WIDTH 14.3 % (11.7-14.4)
[2018-09-22 05:24] LABS: BLOOD UREA NITROGEN 26 mg/dL (7-26); BUN/CREATININE RATIO 37 (6-25); CALCIUM 9.2 mg/dL (8.4-10.2); CARBON DIOXIDE 27 mmol/L (22-29); CHLORIDE 104 mmol/L (98-107); CREATININE, SERUM 0.71 mg/dL (0.72-1.25); EST GLOMERULAR FILTRATION RATE > 60 ML/MIN (60-); GLUCOSE 96 mg/dL (74-118); SODIUM 139 mmol/L (136-145)
--- NOTE | 2018-09-22 06:08 | Diagnostic Imaging Report ---
EXAMINATION: CHEST SINGLE (PORTABLE) 09/22/2018 7:00 AM COMPARISON: 09/21/2018 and 02/01/2017. INDICATION: Pain. DISCUSSION: LINES: None. LUNGS: Bilateral hyperinflation. Left basilar density decreased compared to the prior examination of January 2017 most likely represent platelike atelectasis/scarring, unchanged. Mild bilateral perihilar, peribronchial thickening again noted. PLEURA: No pleural effusion or pneumothorax. HEART AND MEDIASTINUM: The cardiomediastinal silhouette is unremarkable. BONES AND SOFT TISSUES: No acute osseous lesion. The soft tissues are normal. IMPRESSION: No interval change. Left basilar platelike atelectasis versus scarring. Probable COPD. Signed by: Dr. Myron Vick M.D. on 09/22/2018 6:04 AM
[2018-09-22] MEDS: SODIUM CHLORIDE 0.9% 1000ML 1,000 ML IV SCH ×2 (06:17→14:33)
[2018-09-22 07:29] VITALS: BP 99/51
--- NOTE | 2018-09-22 08:21 | NUR ---
Patient resting in bed, Alert with no distress, changed position, at bed side, bed alarm ON,
[2018-09-22] MEDS ORDERED: LIDOCAINE HCL 2% LOCAL 20 ML VIAL ONE ×2 (10:45→18:26)
[2018-09-22] MEDS ORDERED: MIDAZOLAM HCL 2 MG/2 ML VIAL ONE ×2 (10:45→18:26)
[2018-09-22] MEDS ORDERED: FENTANYL CITRATE/PF 100MCG/2 ML INJ ONE (10:45)
[2018-09-22] MEDS ORDERED: SODIUM CHLORIDE 0.9% 500ML 1,000 ML ONE (10:46)
[2018-09-22 13:00] VITALS: BP 101/63
--- NOTE | 2018-09-22 13:10 | NUR ---
patient back from Procedure. Alert with no distress, patient had question regarding procedure, spoke to radiology, they said Dr Myers will come and talk to patient's .
--- NOTE | 2018-09-22 15:07 | Diagnostic Imaging Report ---
Exam: Suprapubic catheter replacement History: Patient with a recent suprapubic catheter placement. This no longer functions and there was manipulation of the catheter by ER physician and IR physician one day prior. Catheter exchange is requested. Comparison: 09/20/2018 suprapubic catheter initial placement. Findings: Indwelling Perez catheter was injected with contrast material. This shows a circular collection of contrast. Perez catheter was injected in addition. A new catheter was placed over a wire through the Perez suprapubic catheter in place but uncertain whether this communicates with an abnormally deformed bladder. Patient was then transferred to the CT scan for evaluation. Fluoroscopy time: 10.7 minutes Total dose: 2355.9 cGycm2 Impression: 1. Suprapubic catheter exchange into a collection of contrast likely not within the bladder. 2. Contrast injected through a Perez catheter through the penis shows an abnormal contracted bladder with multiple small sacculations. There is reflux into both ureters; left side greater than right. 3. Post catheter exchange pelvic CT will be performed with further manipulation or placement of the new catheter to follow. Signed by: Dr. Samuel Paredes DO on 09/22/2018 3:04 PM
--- NOTE | 2018-09-22 15:15 | Diagnostic Imaging Report ---
CT the pelvis. History: Recent suprapubic catheter placement no longer was functioning. Catheter exchange was attempted in the Certified Control Systems Technician with fluoroscopy. Comparison: Suprapubic catheter placement 09/20/2018.. Technique: Multidetector imaging of the pelvis was performed from the level of the iliac crests to the proximal femurs without IV or oral contrast material. Discussion: There is a Perez catheter with the balloon present within a small contracted bladder with multiple sacculations. Suprapubic catheter previously placed is noted with the balloon anterior to the bladder. The bladder is abnormal. 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 Fecal impaction within the rectum. IMPRESSION: Suprapubic catheter visually placed 2 days prior and exchanged today is not within the lumen of the bladder. Signed by: Dr. Samuel Paredes DO on 09/22/2018 3:12 PM
[2018-09-22 15:21] VITALS: BP 114/57
--- NOTE | 2018-09-22 18:20 | NUR ---
patient off the unit for procedure, Alert with no distress
[2018-09-22] MEDS ORDERED: IOPAMIDOL 370 MG/ML 200 ML INFUS..BTL INJ ONE (18:27)
[2018-09-22] MEDS ORDERED: SODIUM CHLORIDE 0.9% 1000ML 1,000 ML ONE (18:27)
--- NOTE | 2018-09-22 19:05 | NUR ---
Received report from previous nurse. Call light within reach. Patient is off the unit. and caregiver at bedside.
--- NOTE | 2018-09-22 19:50 | NUR ---
Patient arrived back from research lab assistant. Received report from Mckinley from research lab assistant. Patient arrived via bed. Patient is in no pain or distress. Call light within reach.
[2018-09-22 20:00] VITALS: BP 111/59
[2018-09-22] MEDS ORDERED: ACETAMINOPHEN 325 MG TAB PO PRN (20:00)
[2018-09-22] MEDS ORDERED: HYDROCODONE/APAP 5MG-325MG TAB PO PRN (20:00)
[2018-09-22] MEDS: DONEPEZIL HCL 5 MG TAB PO SCH (20:35)
[2018-09-22] MEDS: CEFTRIAXONE SOD 1 GM/NS 50 ML 50 ML IV SCH (20:35)
[2018-09-22] MEDS: TAMSULOSIN HCL 0.4 MG CAP PO SCH (20:35)
--- NOTE | 2018-09-22 23:17 | Discharge Summary ---
HISTORY: An 83-year-old male with past medical history positive for CAD, CVA, hypertension, status post suprapubic tube catheter due to urinary retention, due to benign prostatic hypertrophy, came here from the correction due to malfunction of the suprapubic tube. He was retaining urine. Suprapubic tube has been replaced by Dr. Morris. The patient was started on IV antibiotic empirically. He is going back to correction tomorrow if okay with Dr. Morris. PHYSICAL EXAMINATION: VITAL SIGNS: Blood pressure 114/57, temperature 98.4, heart rate 54 per minute, respiratory rate 21 per minute, oxygen saturation 95%. HEART: Showed regular rhythm. Normal S1 and S2 sound. LUNGS: Clear bilaterally. ABDOMEN: Soft. FINAL IMPRESSION: 1. Suprapubic tube malfunction. 2. Possible urinary tract infection. 3. Benign prostatic hypertrophy. 4. Cerebrovascular accident. 5. Coronary artery disease. 6. Acute anemia. 7. Acute renal failure. PLAN OF TREATMENT: Continue current medication regimen. Transfer to correction tomorrow if okay with Dr. Morris. MD DEVIKA Orozco/SEAN /[id number]
[2018-09-23] VITALS (8 sets, daily range): BP systolic 106–124; BP diastolic 57–63
--- NOTE | 2018-09-23 01:43 | Progress Note ---
DATE: Short Note The patient is an 83-year-old, came here because of malfunctioning suprapubic catheter. Right now, the patient is in procedure, Dr. Morris is placing the suprapubic catheter. I am unable to see the patient because he is in the procedure right now. I will try to see him later on or in the morning, if not the patient available now. MD DEVIKA Orozco/SEAN /[id number]
--- NOTE | 2018-09-23 02:38 | Progress Note ---
DATE: Internal Medicine Progress Note SUBJECTIVE: The patient is an 83-year-old male, group home resident with a past medical history positive for suprapubic tube placement, benign prostatic hypertrophy, history of hypertension, coronary artery disease, CVA, came here from the group home because of malfunctioning of the suprapubic tube. The suprapubic tube was replaced by Dr. Morris. The patient is going back to group home tomorrow. REVIEW OF SYSTEMS: The patient is sleepy after surgery, cannot get any information. PAST MEDICAL HISTORY: Hypertension, CAD, and history of CVA. SOCIAL HISTORY: He does not smoke. He does not drink. He lives in a group home. OBJECTIVE: VITAL SIGNS: Blood pressure 114/57, temperature 98.4, heart rate 54 per minute, respiratory rate 21 per minute, and oxygen saturation 95%. HEART: Regular rhythm. Normal S1 and S2 sound. LUNGS: Clear bilaterally. ABDOMEN: Soft. LABORATORY DATA: Sodium 139, potassium 4.0, chloride 104, CO2 of 27, BUN 26, creatinine 0.71, and glucose 96. On CBC, white blood count 8.36, hemoglobin 12.3, hematocrit 38.8, and platelet count 134,000. PT 13.7, INR 1.00, and PTT 25.3. ASSESSMENT: 1. Urinary tract infection. 2. Benign prostatic hypertrophy. 3. Malfunctioning of suprapubic tube. 4. Acute anemia. 5. Acute renal failure. 6. Hematuria. 7. Hypertension. 8. Coronary artery disease. 9. History of cerebrovascular accident. PLAN OF TREATMENT: Continue Rocephin 2 g IV daily. Continue sodium chloride 125 mL an hour, Zofran 4 mg IV q.4 hours as needed, morphine 4 mg IV q.4 hours as needed, Tylenol 1000 mg q.6 hours as needed. Continue rest of the group home medications. The patient is going to be transferred to group home tomorrow if okay with Dr. Morris. MD DEVIKA Orozco/SEAN /[id number]
--- NOTE | 2018-09-23 07:00 | NUR ---
Gave report to oncoming nurse. Patient in bed. Call light within reach
--- NOTE | 2018-09-23 07:28 | NUR ---
Dr Morris had rounds stated patient has to stay until suprapubic urine is clear, new order given to irrigate catheter q4h & prn.
[2018-09-23] MEDS: MEMANTINE 10 MG TAB PO SCH ×2 (08:09→18:26)
[2018-09-23] MEDS: MULTIVITAMINS/MINERALS TAB PO SCH (08:09)
[2018-09-23] MEDS: FAMOTIDINE 20 MG TAB PO SCH ×2 (08:09→18:26)
[2018-09-23] MEDS: ASCORBIC ACID 500 MG TAB PO SCH (08:09)
[2018-09-23] MEDS: ASPIRIN 81 MG ENTERIC COATED PO SCH (08:09)
[2018-09-23] MEDS ORDERED: ASCORBIC ACID PO SCH (09:00)
[2018-09-23] MEDS ORDERED: ONDANSETRON HCL 4 MG ORAL DISINTEGRATING TAB PO PRN (09:00)
[2018-09-23] MEDS ORDERED: NON-FORMULARY MEDICATION (Mu-Vits-Min Th/Lycopene/Lutein (Centrum Silver Tablet) 1 TAB) PO SCH (09:00)
--- NOTE | 2018-09-23 09:25 | NUR ---
patient resting in bed, tolerated breakfast, denies any pain, not in any distress, call light in reach, at bed side
[2018-09-23] MEDS: CEFTRIAXONE SOD 1 GM/NS 50 ML 50 ML IV SCH (18:26)
[2018-09-23] MEDS: TAMSULOSIN HCL 0.4 MG CAP PO SCH (21:48)
[2018-09-23] MEDS: DONEPEZIL HCL 5 MG TAB PO SCH (21:48)
[2018-09-24] VITALS: BP 110/62
--- NOTE | 2018-09-24 | NUR ---
Patient is refusing being turned. When we turn him, he goes back on his back and argues with us.
--- NOTE | 2018-09-24 00:05 | NUR ---
IRRIGATING CATH EVERY 4 HOURS
[2018-09-24 04:00] VITALS: BP 120/61
--- NOTE | 2018-09-24 04:37 | NUR ---
Educated patient on why he needs to be turned and off his back. Patient refused and started arguing with NANOSCIENCE TECHNICIAN and me. He said he will turn himself.
--- NOTE | 2018-09-24 05:55 | Progress Note ---
DATE: 09/23/2018 Internal Medicine Progress Note SUBJECTIVE: The patient is nonverbal. He has dementia. OBJECTIVE: VITAL SIGNS: Blood pressure 110/57, temperature 98.4, heart rate 70 per minute, respiratory rate 18 per minute, oxygen saturation 95%. HEART: Showed regular rhythm. Normal S1, S2 sounds. LUNGS: Clear bilaterally. ABDOMEN: Soft. LABORATORY DATA: BMP; sodium 139, potassium 4.0, chloride 104, CO2 of 27, BUN 26, creatinine 0.71, glucose 9600. CBC; white blood cell count 8.30, hemoglobin 12.3, hematocrit 38.8, platelet count 134,000. PT 13.7, INR 1.00, PTT 25.3. IMPRESSION: 1. Hematuria. 2. Status post suprapubic tube malfunction, status post replacement of suprapubic tube. 3. Dementia. 4. Mild anemia. 5. Urinary tract infection. PLAN OF TREATMENT: Continue ceftriaxone 2 g IV daily, aspirin 81 mg daily, Aricept 10 mg daily, Pepcid 20 mg twice a day, Flomax 0.4 mg at bedtime, Namenda 10 mg twice a day, vitamin C 500 mg daily, [place] 1 tablet q.4 hours as needed, multivitamin one tablet daily, Tylenol 325 mg q.4 hours as needed, Zofran 4 mg q.4 hours as needed, so we are going to continue continuous bladder irrigation until we clear the urine and then the patient might be able to go back to a care home tomorrow. MD DEVIKA Orozco/SEAN /[id number]
--- NOTE | 2018-09-24 07:15 | NUR ---
Beside report received. Patient is awake, alertx1 only. both suprapubic and Perez draining yellow urine, no hematuria noted. Bed in lowest position, locked, bed alarm on and call lau within reach.
--- NOTE | 2018-09-24 07:18 | NUR ---
Gave report to oncoming nurse. Call light within reach. Patient in bed.
[2018-09-24 08:00] VITALS: BP 120/61
[2018-09-24 08:41] VITALS: BP 119/66
[2018-09-24] MEDS: MEMANTINE 10 MG TAB PO SCH ×2 (09:52→17:00)
[2018-09-24] MEDS: MULTIVITAMINS/MINERALS TAB PO SCH (09:52)
[2018-09-24] MEDS: ASCORBIC ACID 500 MG TAB PO SCH (09:52)
[2018-09-24] MEDS: ASPIRIN 81 MG ENTERIC COATED PO SCH (09:52)
[2018-09-24] MEDS: FAMOTIDINE 20 MG TAB PO SCH ×2 (09:52→17:00)
--- NOTE | 2018-09-24 10:14 | NUR ---
PT IS ACCEPTED TO [facility] [address] ERIC, CALL REPORT TO [phone]
[2018-09-24 12:24] VITALS: BP 108/70
[2018-09-24 16:41] VITALS: BP 133/89
--- NOTE | 2018-09-24 17:25 | NUR ---
report given to Sherin at [facility] for patient transfer. both patient and are aware of change. call lau remains within reach and bed in lowest position.
[2018-09-24] MEDS: CEFTRIAXONE SOD 1 GM/NS 50 ML 50 ML IV SCH (18:30)
--- NOTE | 2018-09-24 18:37 | NUR ---
patient leaving unit via stretcher to [facility]. IV discontinued, catheter in tact and small dressing applied. alert with at bedside.
--- NOTE | 2018-09-25 01:05 | Discharge Summary ---
HISTORY: An 83-year-old male, who has past medical history mainly positive for dementia, came here because of not working suprapubic tube, to have in place. He had an episode of hematuria. Hematuria resolved now after continued bladder irrigation. The patient is going to be prescribed Keflex and he is going to go back to retirement. The procedure was done by Dr. Morris. PHYSICAL EXAMINATION: HEART: Showed regular rhythm. Normal S1 and S2 sound. LUNGS: Clear bilaterally. ABDOMEN: Soft. He has suprapubic tube in place. EXTREMITIES: Show no evidence of cyanosis or hematoma. LABORATORY DATA: On BMP; sodium 139, potassium 4.0, chloride 104, CO2 of 27, BUN 26, creatinine 0.71, glucose 96. On CBC; white blood count 8.30, hemoglobin 12.3, hematocrit 38.8, platelet count 134,000. PT 13.7, INR 1.0, PTT 25.3. IMPRESSION: 1. Malfunction of suprapubic tube. 2. Hematuria. 3. Hypotonic bladder. 4. Benign prostatic hypertrophy. 5. Acute anemia. 6. Dementia. PLAN OF TREATMENT: He is going to continue Keflex 250 mg 3 times a day for 10 days. Continue with Aricept 10 mg at bedtime, Pepcid 20 mg twice a day, Flomax 0.4 mg at bedtime, Namenda 10 mg twice a day, vitamin C 500 mg daily, [place] 1 tablet q.4 hours as needed, multivitamin one tablet daily, Tylenol mg q.4 hours as needed. The patient is going back to retirement. MD DEVIKA Orozco/SEAN /[id number]
== END 2018-09-24 18:37 | DRG 699 ==
LOC: ER 15:32 → ERHOLD 20:18 → IMCU 21:57 → OBSVTOIN 09-22 08:31 → MED/SURG 09-24 13:25
PROVIDERS: ADMIT Internal Medicine; ATTEND Internal Medicine
PROC: 0T9B40Z Drainage of Bladder with Drainage Device, Percutaneous Endoscopic Approach (ICD-10-PCS; principal; 2018-09-22)
DX: T83.020A Displacement of cystostomy catheter, initial encounter (principal); N39.0 Urinary tract infection, site not specified; N17.9 Acute kidney failure, unspecified; I25.10 Atherosclerotic heart disease of native coronary artery without angina pectoris; Z86.73 Personal history of transient ischemic attack (TIA), and cerebral infarction without residual deficits; F03.90 Unspecified dementia, unspecified severity, without behavioral disturbance, psychotic disturbance, mood disturbance, and anxiety; N31.2 Flaccid neuropathic bladder, not elsewhere classified; R31.9 Hematuria, unspecified; N20.0 Calculus of kidney; N40.1 Benign prostatic hyperplasia with lower urinary tract symptoms; R33.8 Other retention of urine
CPT/HCPCS: 36415; 51102; 51700; 71045; 72192; 74150; 74470; 75984; 77002; 80048; 81001; 85025; 85610; 85730; 87040; 87086; 87186; 96367; 99284; C1725; C1769; G0378; J0696; J2001; J2250; J2543; J7030; J7040; Q9967

== ENCOUNTER 2018-11-02 19:10 | Emergency (ER) | payer MEDICARE ==
[~2018-11-02] VITALS: Ht 203.2 cm; Wt 64.9 kg
[2018-11-02] MEDS ORDERED: AMOXICILLIN/CLAVULANATE K 500 MG TAB PO SCH (21:00)
[2018-11-02] MEDS ORDERED: LIDOCAINE JELLY 2% 10ML URO-JET ONE (21:42)
[2018-11-02 21:44] LABS: BILIRUBIN,URINE NEGATIVE (NEGATIVE); CLARITY,URINE CLOUDY (CLEAR); COLOR,URINE YELLOW (YELLOW); KETONES,URINE NEGATIVE (NEGATIVE); LEUKOCYTE ESTERASE ,URINE LARGE (NEGATIVE); NITRITE,URINE POSITIVE (NEGATIVE); PROTEIN,URINE DIPSTICK 2+ (NEGATIVE); URINE UROBILINOGEN 0.2 mg/dL (0.2 - 1)
--- NOTE | 2018-11-02 21:50 | NUR ---
suprapubic changed per Dr Whipple. small amount of cloudy urine return, specimen collected and sent to lab. pt tolerated well. irrigated with 240ml sterile NS then placed to gravity.
[2018-11-02 21:54] LABS: AMORPHOUS SEDIMENT,URINE FEW (FEW); BACTERIA,URINE MODERATE /HPF
--- NOTE | 2018-11-02 21:55 | NUR ---
augmentin crushed and mixed with pudding per request. pt tolerated well
[2018-11-02] MEDS ORDERED: AUGMENTIN 500-1 EACH PO (22:01)
== END 2018-11-02 22:30 ==
LOC: ER 19:10
DX: Z46.6 Encounter for fitting and adjustment of urinary device (principal)
CPT/HCPCS: 81001; 87086; 87186; 99283